=== PATIENT | male | born 1985 | race Caucasian/White ===

== ENCOUNTER 2016-05-29 03:03 | Emergency (ER) | payer OTHER ==
[~2016-05-29 03:03] MED LIST: NO MEDICATIONS
[2016-05-29] MEDS ORDERED: BACTRIM 400-801 TA1 PO (03:14)
[2016-05-29] MEDS ORDERED: KEFLEX500 MG PO (03:15)
== END 2016-05-29 03:15 | disposition home or self-care (01) ==
LOC: SED 03:03
DX: L03.115 Cellulitis of right lower limb (principal); F17.200 Nicotine dependence, unspecified, uncomplicated
CPT/HCPCS: 99282